=== PATIENT | male | born 1955 | race Asian ===

== ENCOUNTER 2022-06-26 12:44 | Outpatient (CLI) | payer OTHER | END 2022-06-26 20:39 | disposition home or self-care (01) | LOC: RAD 12:44 | PROVIDERS: ATTEND Family Medicine | DX: M54.59 Other low back pain (principal); M54.10 Radiculopathy, site unspecified; M19.041 Primary osteoarthritis, right hand ==

== ENCOUNTER 2022-08-02 05:15 | Observation (INO) | payer OTHER ==
[~2022-08-02] VITALS: Ht 188 cm; Wt 99.8 kg
[2022-08-02 05:39] VITALS: BP 16/77; TEMP 98.4
[2022-08-02 05:49] LABS: PLATELET COUNT 171 K/uL (142-355)
[2022-08-02 05:54] LABS: POTASSIUM 2.6 mmol/L (3.6-5.2)
[2022-08-02 07:53] VITALS: BP 129/85; Ht 188 cm; Wt 99.8 kg
[2022-08-02 09:00] VITALS: BP 127/87; TEMP 98.4
[2022-08-02 12:00] VITALS: BP 119/74; TEMP 98.2
[2022-08-02 13:36] LABS: POTASSIUM 3.4 mmol/L (3.6-5.2)
[2022-08-02 16:01] VITALS: BP 123/78; TEMP 98.2
== END 2022-08-02 16:30 | disposition home or self-care (01) ==
LOC: ED 05:15 → EDIP 06:48
PROVIDERS: Family Medicine; ADMIT Nurse Practitioner Family; ATTEND Internal Medicine
DX: R07.89 Other chest pain (principal); E87.6 Hypokalemia
CPT/HCPCS: 80048; 80053; 84484; 85027; 93005; 96365; 99221; 99284; G0378